=== PATIENT | female | born 1945 | race Two or more races ===

== ENCOUNTER 2017-05-10 12:32 | Emergency (ER) | payer MEDICARE, OTHER ==
[~2017-05-10] VITALS: Ht 165.1 cm; Wt 65.9 kg
[2017-05-10] MEDS ORDERED: MECLIZINE CHEWABLE 25 MG TAB ONE (13:23)
[2017-05-10 13:29] LABS: HEMATOCRIT 42.3 % (34.6-47.8); HEMOGLOBIN 14.7 g/dL (11.7-16.4)
[2017-05-10] MEDS ORDERED: PLEASE ENTER ALLERGIES MC SCH ×2 (13:30)
[2017-05-10] MEDS ORDERED: MECLIZINE CHEWABLE 25 MG TAB PO ONE (13:30)
[2017-05-10 13:32] LABS: BLOOD UREA NITROGEN 14 mg/dL (7-18)
[2017-05-10] MEDS ORDERED: POTASSIUM CHLORIDE 20 MEQ TAB.ER.PRT PO ONE (14:00)
[2017-05-10] MEDS ORDERED: POTASSIUM CHLORIDE 20 MEQ TAB.ER.PRT ONE (14:03)
[2017-05-10 14:06] VITALS: BP 142/80
== END 2017-05-10 14:20 | disposition home or self-care (01) ==
LOC: ED 12:51
DX: R42 Dizziness and giddiness (principal); E87.6 Hypokalemia
CPT/HCPCS: 36415; 80048; 82040; 85025; 93005; 99285